=== PATIENT | female | born 1980 | race Caucasian/White ===

== ENCOUNTER → 2018-04-25 | Emergency (ER) | payer MEDICARE, MEDICAID ==
[~2018-04-25] VITALS: Ht 167.6 cm; Wt 104.5 kg
[~2018-04-25] MED LIST: ALBU8HFA PO; AMOX-422 PO; DEC4T PO; IBUP-1051 PO; LIDOcaine 1.5% w/epinephrine 1:200,000 5ml ampul IJ ONE; METH-360 PO; rabies immune globulin/PF 150 unit/ml inj IM ONE; rabies vaccine (PCEC)/PF 2.5 unit kit IM ONE
[2018-04-25 11:14] VITALS: BP 134/87
== END | disposition home or self-care (01) ==
LOC: ER 08:47
DX: S61.011A Laceration without foreign body of right thumb without damage to nail, initial encounter (principal); S61.051A Open bite of right thumb without damage to nail, initial encounter; S21.051A Open bite of right breast, initial encounter; S20.01XA Contusion of right breast, initial encounter; G43.909 Migraine, unspecified, not intractable, without status migrainosus; J45.909 Unspecified asthma, uncomplicated; Z88.8 Allergy status to other drugs, medicaments and biological substances; Z79.899 Other long term (current) drug therapy; W54.0XXA Bitten by dog, initial encounter; Y93.89 Activity, other specified; Y92.89 Other specified places as the place of occurrence of the external cause; Y99.8 Other external cause status
CPT/HCPCS: 64450; 73120; 90375; 90471; 90675; 96372; 99284; A6222; A6449; J3490

== ENCOUNTER 2018-04-27 10:05 | Emergency (ER) | payer MEDICARE, MEDICAID ==
[~2018-04-27] VITALS: Ht 167.6 cm; Wt 104.5 kg
[~2018-04-27 10:05] MED LIST changes: -LIDOcaine 1.5% w/epinephrine 1:200,000 5ml ampul IJ ONE; -rabies immune globulin/PF 150 unit/ml inj IM ONE; -rabies vaccine (PCEC)/PF 2.5 unit kit IM ONE
[2018-04-27 11:42] VITALS: BP 127/86
== END 2018-04-27 11:44 | disposition home or self-care (01) ==
LOC: ER 10:05
DX: S61.051D Open bite of right thumb without damage to nail, subsequent encounter (principal); G43.909 Migraine, unspecified, not intractable, without status migrainosus; J45.909 Unspecified asthma, uncomplicated; Z88.8 Allergy status to other drugs, medicaments and biological substances; Z79.2 Long term (current) use of antibiotics; Z79.899 Other long term (current) drug therapy; Z79.1 Long term (current) use of non-steroidal anti-inflammatories (NSAID); W54.0XXD Bitten by dog, subsequent encounter
CPT/HCPCS: 99283; A6222

== ENCOUNTER 2018-04-28 10:02 | Emergency (ER) | payer MEDICARE, MEDICAID ==
[~2018-04-28] VITALS: Ht 162.6 cm; Wt 105.0 kg
[2018-04-28 10:05] VITALS: BP 139/86
[2018-04-28] MEDS ORDERED: rabies vaccine (PCEC)/PF 2.5 unit kit IMVAC ONE (10:50)
== END 2018-04-28 11:25 | disposition home or self-care (01) ==
LOC: ER 10:02
DX: S61.051A Open bite of right thumb without damage to nail, initial encounter (principal); Z23 Encounter for immunization; G43.909 Migraine, unspecified, not intractable, without status migrainosus; J45.909 Unspecified asthma, uncomplicated; Z88.8 Allergy status to other drugs, medicaments and biological substances; Z79.899 Other long term (current) drug therapy; W54.0XXA Bitten by dog, initial encounter; Y93.89 Activity, other specified; Y92.89 Other specified places as the place of occurrence of the external cause; Y99.8 Other external cause status
CPT/HCPCS: 90471; 90675; 99283; A6222; A6255; A6446

== ENCOUNTER 2018-05-02 09:46 | Emergency (ER) | payer MEDICARE, MEDICAID ==
[~2018-05-02] VITALS: Ht 167.6 cm; Wt 104.1 kg
[2018-05-02 09:53] VITALS: BP 122/71
[2018-05-02] MEDS ORDERED: rabies vaccine (PCEC)/PF 2.5 unit kit IMVAC ONE (10:05)
== END 2018-05-02 10:39 | disposition home or self-care (01) ==
LOC: ER 09:46
DX: Z23 Encounter for immunization (principal); S60.311D Abrasion of right thumb, subsequent encounter; G43.909 Migraine, unspecified, not intractable, without status migrainosus; J45.909 Unspecified asthma, uncomplicated; Z88.8 Allergy status to other drugs, medicaments and biological substances; Z79.899 Other long term (current) drug therapy; W54.0XXD Bitten by dog, subsequent encounter
CPT/HCPCS: 90471; 90675; 99283

== ENCOUNTER 2018-05-09 06:37 | Emergency (ER) | payer MEDICARE, MEDICAID ==
[~2018-05-09] VITALS: Ht 167.6 cm; Wt 94.0 kg
[~2018-05-09 06:37] MED LIST changes: -AMOX-422 PO
[2018-05-09 06:41] VITALS: BP 122/82
[2018-05-09] MEDS ORDERED: rabies vaccine (PCEC)/PF 2.5 unit kit IMVAC ONE (08:30)
== END 2018-05-09 08:49 | disposition home or self-care (01) ==
LOC: ER 06:38
DX: Z23 Encounter for immunization (principal); G43.909 Migraine, unspecified, not intractable, without status migrainosus; J45.909 Unspecified asthma, uncomplicated; Z87.891 Personal history of nicotine dependence; Z88.8 Allergy status to other drugs, medicaments and biological substances; Z79.899 Other long term (current) drug therapy
CPT/HCPCS: 90471; 90675; 99283